=== PATIENT | male | born 1980 | race Caucasian/White ===

== ENCOUNTER 2019-04-12 10:47 | Emergency (ER) | payer OTHER ==
[2019-04-12 10:58] VITALS: BP 137/84; PULSE 69
[2019-04-12] MEDS ORDERED: Bacitracin Oint 1 GM U/D Packet TOP ONE (11:37)
--- NOTE | 2019-04-12 11:39 | EDM.PDOC ---
ED HPI GENERAL MEDICAL PROBLEM - General Chief Complaint: Skin Complaint Stated Complaint: SLICED RING FINGER L HAND Time Seen by Provider: 04/12/19 10:56 Source of Information: Reports: Patient History Limitations: Reports: No Limitations - History of Present Illness INITIAL COMMENTS - FREE TEXT/NARRATIVE: This 38 yo male patient reports to the ED with an injury to his left Onset: Today Duration: Minutes:, Constant Location: Reports: Upper Extremity, Left Quality: Reports: Ache Severity: Mild Improves with: Reports: None Worsens with: Reports: None Context: Reports: Other Associated Symptoms: Reports: No Other Symptoms Left Finger-Ring Pain Score (Numeric/FACES): 4 - Related Data Allergies Allergy/AdvReac Type Severity Reaction Status Date / Time No Known Allergies Allergy Verified 04/12/19 10:58 Home Meds: Home Meds Escitalopram [Lexapro] 20 mg PO DAILY 04/12/19 [History] buPROPion HCl [Bupropion Xl] 150 mg PO DAILY 04/12/19 [History] Past Medical History HEENT History: Reports: None Cardiovascular History: Reports: None Respiratory History: Reports: None Gastrointestinal History: Reports: None Genitourinary History: Reports: None Neurological History: Reports: None Psychiatric History: Reports: Anxiety, Depression Endocrine/Metabolic History: Reports: None Hematologic History: Reports: None Immunologic History: Reports: None Oncologic (Cancer) History: Reports: None Dermatologic History: Reports: None - Infectious Disease History Infectious Disease History: Reports: Chicken Pox - Past Surgical History Head Surgeries/Procedures: Reports: None Musculoskeletal Surgical History: Reports: Other (See Below) Other Musculoskeletal Surgeries/Procedures:: right pinky finger, right heel, left thumb Social & Family History - Family History Family Medical History: Noncontributory - Tobacco Use Smoking Status *Q: Current Every Day Smoker Years of Tobacco use: 25 Packs/Tins Daily: 1 - Caffeine Use Caffeine Use: Reports: Coffee, Soda - Recreational Drug Use Recreational Drug Use: No ED ROS GENERAL - Review of Systems Review Of Systems: ROS reveals no pertinent complaints other than HPI. ED EXAM, SKIN/RASH Exam: See Below Exam Limited By: No Limitations General Appearance: Alert, WD/WN, No Apparent Distress Eye Exam: Bilateral Eye: EOMI, Normal Inspection Ears: Normal External Exam Respiratory/Chest: No Respiratory Distress, Lungs Clear, Normal Breath Sounds, No Accessory Muscle Use, Chest Non-Tender Cardiovascular: Normal Peripheral Pulses, Regular Rate, Rhythm, No Edema, No Gallop, No JVD, No Murmur, No Rub (Male) Exam: Deferred Rectal (Males) Exam: Deferred Back Exam: Normal Inspection, Full Range of Motion, NT Extremities: Arm Pain (left 4th finger) Neurological: Alert, Oriented, CN II-XII Intact, Normal Cognition, Normal Gait, Normal Reflexes, No Motor/Sensory Deficits Psychiatric: Normal Affect, Normal Mood Skin: Wound/Incision (Left 4th DIP laceration (not requiring sutures)) Location, Skin: Upper Extremity, Left Lymphatic: No Adenopathy Course - Vital Signs Last Recorded V/S: Last Vital Signs Temp 36.2 C 04/12/19 10:52 Pulse 69 04/12/19 10:52 Resp 16 04/12/19 10:52 BP 137/84 04/12/19 10:52 Pulse Ox 97 04/12/19 10:52 - Orders/Labs/Meds Orders: Active Orders 24 hr Category Date Time Status Fingers Third Digit Lt F2 [CR] Urgent Exams 04/12/19 10:58 Ordered Departure - Departure Time of Disposition: 11:42 Disposition: Home, Self-Care 01 Condition: Fair Clinical Impression: Laceration of left ring finger w/o foreign body w/o damage to nail Qualifiers: Encounter type: initial encounter Qualified Code(s): S61.215A - Laceration without foreign body of left ring finger without damage to nail, initial encounter - Discharge Information *PRESCRIPTION DRUG MONITORING PROGRAM REVIEWED*: Not Applicable *COPY OF PRESCRIPTION DRUG MONITORING REPORT IN PATIENT JOSE: Not Applicable Instructions: Laceration Care, Adult, [place] Care Plan Goals: The patient was advised of the examination and x-ray results during the visit. The patient's wound was cleansed and dressed with antibiotic ointment as well as splinted during the visit. The patient was encouraged to keep the area clean and dry. If the patient has any additional symptoms, the patient should either return to the emergency department or visit his primary care provider. - My Orders Last 24 Hours: My Active Orders 04/12/19 10:58 Fingers Third Digit Lt F2 [CR] Urgent - Assessment/Plan Last 24 Hours: My Active Orders 04/12/19 10:58 Fingers Third Digit Lt F2 [CR] Urgent
== END 2019-04-12 11:55 | disposition home or self-care (01) ==
LOC: DL.ED 10:47
DX: S61.215A Laceration without foreign body of left ring finger without damage to nail, initial encounter (principal); F41.9 Anxiety disorder, unspecified; F32.9 Major depressive disorder, single episode, unspecified; F17.210 Nicotine dependence, cigarettes, uncomplicated; Z79.899 Other long term (current) drug therapy; X58.XXXA Exposure to other specified factors, initial encounter; Y93.89 Activity, other specified
CPT/HCPCS: 73140-F3; 99282

== ENCOUNTER 2020-12-11 22:21 | Emergency (ER) | payer OTHER ==
[~2020-12-11 22:21] MED LIST: Metoclopramide 10 MG/2 ML SDV IVPUSH ONE
[2020-12-11] MEDS ORDERED: Ondansetron 4 MG Tab.DIS PO ONE ×2 (22:22)
[2020-12-11 22:30] VITALS: PULSE 88
[2020-12-11 22:58] LABS: ANION GAP 16.1 mEq/L (7-13)
--- NOTE | 2020-12-11 23:09 | EDM.PDOC ---
ED HPI GENERAL MEDICAL PROBLEM - General Stated Complaint: AMBULANCE Time Seen by Provider: 12/11/20 22:35 Source of Information: Reports: Patient History Limitations: Reports: No Limitations - History of Present Illness INITIAL COMMENTS - FREE TEXT/NARRATIVE: This 40 yo male patient was brought to the ED by [facility] due to possible choking and vomiting. EMS reports upon arrival on scene the patient was lying on his abdomen dry heaving. The patient did not given much of a report to EMS, but continued to vomit during transport. The patient was given Zofran and IV fluids by EMS. Upon arrival in the ED, the patient was heaving and vomiting. Onset: Today Duration: Minutes: Location: Reports: Abdomen Quality: Reports: Other Severity: Mild Improves with: Reports: None Worsens with: Reports: None Context: Reports: Other Associated Symptoms: Reports: No Other Symptoms - Related Data Allergies Allergy/AdvReac Type Severity Reaction Status Date / Time No Known Allergies Allergy Verified 04/12/19 10:58 Home Meds: Home Meds Escitalopram [Lexapro] 20 mg PO DAILY 04/12/19 [History] buPROPion HCL [Bupropion Xl] 150 mg PO DAILY 04/12/19 [History] Past Medical History HEENT History: Reports: None Cardiovascular History: Reports: None Respiratory History: Reports: None Gastrointestinal History: Reports: None Genitourinary History: Reports: None Neurological History: Reports: None Psychiatric History: Reports: Anxiety, Depression Endocrine/Metabolic History: Reports: None Hematologic History: Reports: None Immunologic History: Reports: None Oncologic (Cancer) History: Reports: None Dermatologic History: Reports: None - Infectious Disease History Infectious Disease History: Reports: Chicken Pox - Past Surgical History Head Surgeries/Procedures: Reports: None Musculoskeletal Surgical History: Reports: Other (See Below) Other Musculoskeletal Surgeries/Procedures:: right pinky finger, right heel, left thumb Social & Family History - Family History Family Medical History: No Pertinent Family History - Tobacco Use Tobacco Use Status *Q: Never Tobacco User - Caffeine Use Caffeine Use: Reports: Coffee, Energy Drinks, Soda - Recreational Drug Use Recreational Drug Use: No ED ROS GENERAL - Review of Systems Review Of Systems: Comprehensive ROS is negative, except as noted in HPI. ED EXAM, GI/ABD - Physical Exam Exam: See Below Exam Limited By: No Limitations General Appearance: Alert, WD/WN, Moderate Distress Eyes: Bilateral: Normal Appearance, EOMI Ears: Normal External Exam, Normal Canal, Hearing Grossly Normal, Normal TMs Nose: Normal Inspection, Normal Mucosa, No Blood Throat/Mouth: Normal Inspection, Normal Lips, Normal Teeth, Normal Gums, Normal Oropharynx, Normal Voice, No Airway Compromise Head: Atraumatic, Normocephalic Neck: Normal Inspection, Supple, Non-Tender, Full Range of Motion Respiratory/Chest: No Respiratory Distress, Lungs Clear, Normal Breath Sounds, No Accessory Muscle Use, Chest Non-Tender Cardiovascular: Normal Peripheral Pulses, Regular Rate, Rhythm, No Edema, No Gallop, No JVD, No Murmur, No Rub GI/Abdominal Exam: Normal Bowel Sounds, Soft, No Organomegaly, No Abnormal Bruit, No Mass, Pelvis Stable (Male) Exam: Deferred Rectal (Males) Exam: Deferred Back Exam: Normal Inspection, Full Range of Motion, NT Extremities: Normal Inspection, Normal Range of Motion, Non-Tender, Normal Capillary Refill, No Pedal Edema Neurological: Alert, Oriented, CN II-XII Intact, Normal Cognition, Normal Gait, Normal Reflexes, No Motor/Sensory Deficits Psychiatric: Normal Affect, Normal Mood Skin Exam: Warm, Dry, Intact, Normal Color, No Rash Lymphatic: No Adenopathy Course - Vital Signs Last Recorded V/S: Last Vital Signs Temp 97.5 F 12/11/20 22:21 Pulse 88 12/11/20 22:21 Resp 18 12/11/20 22:21 BP 101/73 12/11/20 22:21 Pulse Ox 93 L 12/11/20 22:21 - Orders/Labs/Meds Orders: Active Orders 24 hr Category Date Time Status DRUG SCREEN URINE BIORAD [URCHEM] Stat Lab 12/11/20 22:20 Ordered UA RFX BETITO AND CULT IF INDIC [URIN] Urgent Lab 12/11/20 22:20 Ordered Labs: Laboratory Tests 12/11/20 12/11/20 Range/Units 22:31 22:31 WBC 9.1 (5.0-10.0) 10^3/uL RBC 5.16 (4.6-6.2) 10^6/uL Hgb 15.5 (14.0-18.0) g/dL Hct 43.9 (40.0-54.0) % MCV 85.1 (80-100) fL MCH 30.0 (27.0-34.0) pg MCHC 35.3 H (33.0-35.0) g/dL Plt Count 257 (150-450) 10^3/uL Neut % (Auto) 40.3 L (42.2-75.2) % Lymph % (Auto) 50.6 H (20.5-50.1) % Faulk % (Auto) 7.4 (2-8) % Eos % (Auto) 1.3 (1.0-3.0) % Baso % (Auto) 0.4 (0.0-1.0) % Sodium 141 (136-145) mmol/L Potassium 3.1 L (3.5-5.1) mmol/L Chloride 104 (98-107) mmol/L Carbon Dioxide 24 (21-32) mmol/L Anion Gap 16.1 H (7-13) mEq/L BUN 15 (7-18) mg/dL Creatinine 1.54 H (0.70-1.30) mg/dL Est Cr Clr Drug Dosing 68.59 mL/min Estimated GFR (MDRD) 50 BUN/Creatinine Ratio 9.7 (No establ ref range) Glucose 119 H (70-99) mg/dL Calcium 8.1 L (8.5-10.1) mg/dL Total Bilirubin 0.4 (0.2-1.0) mg/dL AST 42 H (15-37) U/L ALT 88 H (16-63) U/L Alkaline Phosphatase 70 (46-116) U/L Total Protein 7.0 (6.4-8.2) g/dL Albumin 3.6 (3.4-5.0) g/dL Globulin 3.4 Albumin/Globulin Ratio 1.1 Ethyl Alcohol 196 (0) mg/dL Meds: Medications Discontinued Medications Generic Name Dose Route Start Last Admin Trade Name Freq PRN Reason Stop Dose Admin Metoclopramide HCl 10 mg 12/11/20 22:20 12/11/20 22:25 Metoclopramide 10 Mg/2 Ml Sdv IVPUSH 12/11/20 22:21 10 mg ONETIME ONE Administration - Radiology Interpretation Free Text/Narrative:: [facility] Final Radiology Report Call: [phone] assistance Online chat: [email or web address] Name: DARRYN TOWNSEND Age: 40Years M Date: 12/11/2020 SSN: -- : [id number] Study: CR CHEST 2V Requesting Physician: Armand Keller Images: 2 Addl Studies: Provided Clinical History: choking/vomiting Contrast: Contrast Medium: Contrast Amount: Contrast Method: CONFIDENTIALITY STATEMENT This report is intended only for use by the referring physician, and only in accordance with law. If you received this in error, call [phone]. Page 1 of 1 PROCEDURE INFORMATION: Exam: XR Chest Exam date and time: 12/11/2020 10:21 PM Age: 40 years old Clinical indication: Other: Choking/vomiting TECHNIQUE: Imaging protocol: XR of the chest. Views: 2 views. COMPARISON: CR CHEST PA/LAT 09/11/2008 1:23 AM FINDINGS: Lungs: Low lung volumes limit evaluation. Mild bilateral perihilar reticulonodular opacities likely reflect vessel crowding with poor inspiration. Pleural spaces: Unremarkable. No pleural effusion. No pneumothorax. Heart/Mediastinum: Unremarkable. No cardiomegaly. Bones/joints: Chronic fracture deformity of the left clavicle. IMPRESSION: Suboptimal due to poor inspiration. No acute findings. Thank you for allowing us to participate in the care of your patient. Dictated and Authenticated by: Jesus Mckenna MD 12/12/2020 12:13 AM Central Time ([place] & [place]) - Re-Assessments/Exams Free Text/Narrative Re-Assessment/Exam: 12/11/20 23:06 When the patient returned to the ED from x-ray, the patient's family was present. The family report the patient had eaten some hot dish that had been in the refrigerator since last Friday. The patient did admit to drinking alcohol tonight, but reports he did not drink more than normal for him. The patient was arguing with his family throughout the visit. The patient demanded that he was fine and wanted to go home "now". The family wanted to wait for lab and x-ray results prior to bringing the patient home. Departure - Departure Time of Disposition: 00:15 Disposition: Home, Self-Care 01 Condition: Fair Clinical Impression: Nausea & vomiting Qualifiers: Vomiting type: unspecified Vomiting Intractability: intractable Qualified Code(s): R11.2 - Nausea with vomiting, unspecified - Discharge Information *PRESCRIPTION DRUG MONITORING PROGRAM REVIEWED*: Not Applicable *COPY OF PRESCRIPTION DRUG MONITORING REPORT IN PATIENT JOSE: Not Applicable Instructions: Nausea and Vomiting, Adult, [id number] Forms: ED Department Discharge Care Plan Goals: The patient and family were advised of the examination, lab and x-ray results during the visit. The patient was given an IV dose of Zofran and IV fluids by EMS prior to arrival. The patient was given an IV dose of Reglan while in the ED with symptom relief. If the patient has any additional symptoms or concerns, the patient should either return to the emergency department or visit his primary care facility. Sepsis Event Note (ED) - Evaluation Sepsis Screening Result: No Definite Risk - Focused Exam Vital Signs: Vital Signs Temp Pulse Resp BP Pulse Ox 12/11/20 22:21 97.5 F 88 18 101/73 93 L - My Orders Last 24 Hours: My Active Orders 12/11/20 22:20 DRUG SCREEN URINE BIORAD [URCHEM] Stat UA RFX BETITO AND CULT IF INDIC [URIN] Urgent - Assessment/Plan Last 24 Hours: My Active Orders 12/11/20 22:20 DRUG SCREEN URINE BIORAD [URCHEM] Stat UA RFX BETITO AND CULT IF INDIC [URIN] Urgent
--- NOTE | 2020-12-12 00:14 | CR ---
PROCEDURE INFORMATION: Exam: XR Chest Exam date and time: 12/11/2020 10:21 PM Age: 40 years old Clinical indication: Other: Choking/vomiting TECHNIQUE: Imaging protocol: XR of the chest. Views: 2 views. COMPARISON: CR CHEST PA/LAT 09/11/2008 1:23 AM FINDINGS: Lungs: Low lung volumes limit evaluation. Mild bilateral perihilar reticulonodular opacities likely reflect vessel crowding with poor inspiration. Pleural spaces: Unremarkable. No pleural effusion. No pneumothorax. Heart/Mediastinum: Unremarkable. No cardiomegaly. Bones/joints: Chronic fracture deformity of the left clavicle. IMPRESSION: Suboptimal due to poor inspiration. No acute findings.
[2020-12-12] MEDS ORDERED: Ondansetron 4 MG Tab.DIS ONE (00:30)
[2020-12-12 00:49] VITALS: BP 79/45
== END 2020-12-12 00:35 | disposition home or self-care (01) ==
LOC: DL.ED 22:21
DX: R11.2 Nausea with vomiting, unspecified (principal); Z79.899 Other long term (current) drug therapy
CPT/HCPCS: 36415; 71046; 80053; 80307; 82271; 85025; 96374; 99283; 99284; A9270; J2765

== ENCOUNTER 2024-11-03 12:05 | Emergency (ER) | payer OTHER ==
[2024-11-03] MEDS ORDERED: Sodium Chloride 0.9% 10 ML Syringe FLUSH PRN (12:12)
[2024-11-03] MEDS ORDERED: HYDROmorphone 1 MG/ML Syringe IVPUSH ONE (12:14)
[2024-11-03 12:25] LABS: BASOPHILS PERCENT AUTO 0.4 % (0.0-1.0); EOSINOPHILS PERCENT AUTO 1.5 % (1.0-3.0); HEMATOCRIT 42.5 % (40.0-54.0); HEMOGLOBIN 14.5 g/dL (14.0-18.0); LYMPHOCYTES PERCENT AUTO 35.3 % (20.5-50.1); MEAN CORPUSCULAR HEMOGLOBIN 28.9 pg (27.0-34.0); MEAN CORPUSCULAR HGB CONC 34.1 g/dL (33.0-35.0); MEAN CORPUSCULAR VOLUME 84.7 fL (80-100); MONOCYTES PERCENT AUTO 7.3 % (2-8); NEUTROPHILS PERCENT AUTO 55.5 % (42.2-75.2); PLATELET COUNT,PLT 208 10^3/uL (150-450); RED BLOOD CELL COUNT 5.02 10^6/uL (4.6-6.2); WHITE BLOOD CELL COUNT,WBC 5.5 10^3/uL (5.0-10.0)
[2024-11-03 12:42] LABS: INR 0.9 (0.9-1.2); PROTHROMBIN TIME 9.8 SEC (9.0-12.0); PTT,PARTIAL THROMBOPLSTIN TIME 25.4 SEC (22.0-34.0)
[2024-11-03 12:43] LABS: ALANINE AMINOTRANSFERASE,ALT 125 U/L (16-63); ALBUMIN 3.9 g/dL (3.4-5.0); ALKALINE PHOSPHATASE 73 U/L (46-116); ASPARTATE AMNIOTRANSFERASE,AST 53 U/L (15-37); BILIRUBIN TOTAL 0.5 mg/dL (0.2-1.0); BLOOD UREA NITROGEN,BUN 14 mg/dL (7-18); BUN/CREATININE RATIO 10.6 (No establ ref range); CARBON DIOXIDE,CO2 26 mmol/L (21-32); CHLORIDE,CL 103 mmol/L (98-107); CREATININE 1.32 mg/dL (0.70-1.30); ESTIMATED GFR 67 mL/min (>=60); GLUCOSE RANDOM 95 mg/dL (70-99); PROTEIN TOTAL,TP 7.7 g/dL (6.4-8.2); SODIUM,NA 140 mmol/L (136-145)
[2024-11-03] MEDS ORDERED: diazePAM 10 MG/2 ML Syringe IVPUSH ONE (13:05)
[2024-11-03] MEDS ORDERED: diazePAM 10 MG/2 ML Syringe IV ONE (13:14)
[2024-11-03] MEDS ORDERED: HYDROmorphone 1 MG/ML Syringe IV ONE (13:48)
[2024-11-03] MEDS: Iopamidol 612 MG/ML 100 ML Bottle IVPUSH ONE (13:56)
[2024-11-03] MEDS ORDERED: Ketorolac 30 MG/ML SDV IVPUSH ONE (15:04)
[2024-11-03] MEDS ORDERED: Ketamine 500 mg/10 ML MDV IV ONE ×2 (15:29→15:36)
== END 2024-11-03 16:27 ==
LOC: DL.ED 12:05
DX: S32.019A Unspecified fracture of first lumbar vertebra, initial encounter for closed fracture (principal); Z79.899 Other long term (current) drug therapy; W17.89XA Other fall from one level to another, initial encounter; Y93.89 Activity, other specified
CPT/HCPCS: 36415; 70450; 71045; 72125; 72128; 72131; 72170; 74177; 80053; 85025; 85610; 85730; 86850; 86900; 86901; 93005; 96374; 96375; 99285; J1171; J3360; J3490; Q9967; 93010; 99284